=== PATIENT | male | born 1995 | race Caucasian/White ===

== ENCOUNTER 2023-12-10 20:42 | Emergency (ER) | payer MEDICAID ==
[~2023-12-10] VITALS: Ht 182.9 cm; Wt 133.0 kg
[2023-12-10 20:50] VITALS: BP 132/71; RESP 18; TEMP 98; O2SAT 98
[2023-12-10 21:02] VITALS: PULSE 95
[2023-12-10] MEDS: KETOROLAC 15MG/ML VIAL IM ONE (23:15)
[2023-12-10] MEDS ORDERED: FUROSEMIDE 40MG/4ML VIAL IV ONE (23:30)
[2023-12-10] MEDS ORDERED: DIAZEPAM 2 MG TABLET PO ONE (23:45)
[2023-12-10] MEDS ORDERED: HYDROCODONE/ACETAMINOPHEN 5/325MG TABLET PO ONE (23:45)
[2023-12-11] MEDS ORDERED: LIDO700A15 TP (00:59)
[2023-12-11] MEDS ORDERED: NAPR-1176 MT (00:59)
== END 2023-12-11 18:54 | disposition home or self-care (01) ==
LOC: ER 20:42
DX: M54.50 Low back pain, unspecified (principal); E11.9 Type 2 diabetes mellitus without complications
CPT/HCPCS: 99283; 96372; J1940; J1885

== ENCOUNTER 2025-10-13 18:52 | Emergency (ER) | payer MEDICAID ==
[~2025-10-13] VITALS: Ht 177.8 cm; Wt 100.0 kg
[~2025-10-13 18:52] MED LIST: LIDO-53 TP; NAPR-1176 MT
[2025-10-13 18:56] VITALS: O2SAT 99
[2025-10-13 20:21] VITALS: TEMP 37.3; O2SAT 99
[2025-10-13 20:23] VITALS: BP 133/76; PULSE 95; RESP 15
[2025-10-13] MEDS: KETOROLAC 30MG/ML VIAL IM ONE (20:23)
[2025-10-13] MEDS: CYCLOBENZAPRINE 10MG TABLET PO SCH (20:25)
[2025-10-13] MEDS ORDERED: BACL-141 MT (21:00)
[2025-10-13] MEDS ORDERED: IBUP-1455 PO (21:00)
== END 2025-10-13 22:25 | disposition home or self-care (01) ==
LOC: ER 18:52
DX: M54.16 Radiculopathy, lumbar region (principal); E11.9 Type 2 diabetes mellitus without complications; Z79.899 Other long term (current) drug therapy
CPT/HCPCS: 99283; 96372; J1885